=== PATIENT | male | born 1945 | race Caucasian/White ===

== ENCOUNTER 2017-09-17 12:50 | Emergency (ER) | payer OTHER ==
[~2017-09-17] VITALS: Ht 175.3 cm; Wt 80.2 kg
[~2017-09-17 12:50] MED LIST: ASPIRIN E.C.81 M1 PO; Bactrim,Septra DS 80 PO; MELATIN3 MG PO; METFORMIN HCL500 M1 PO; MIRALAX255 GM PO; SAM-E200 MG PO; ST. JOSEPH ASPI81 MG PO; STELAZINE PO; STELAZINE5 MG PO; [UNRECOGNIZED DRUG - OTHER] PO
[2017-09-17 13:24] LABS: HEMATOCRIT 44.8 % (38.0-50.0); HEMOGLOBIN 15.2 G/DL (12.5-16.6); MCHC 33.9 G/DL (30.0-36.0); MCV 88.5 FL (86-99); PLATELET COUNT 391 K/uL (156-360); RBC DIS.WIDTH-CV 13.2 % (11.8-14.6); RBC DIS.WIDTH-SD 42.1 % (39-53); RED BLOOD COUNT 5.06 M/uL (4.00-5.50); WHITE BLOOD COUNT 9.1 K/uL (4.1-10.2)
[2017-09-17 13:36] LABS: ALBUMIN 4.5 g/dL (3.2-4.8); CHLORIDE 101 mEq/L (99-109); POTASSIUM 4.8 mEq/L (3.7-5.4); SODIUM 139 mEq/L (136-147)
[2017-09-17 13:39] LABS: GLUCOSE 95 mg/dL (70-99); TOTAL PROTEIN 6.5 g/dL (6.4-8.3)
[2017-09-17 13:41] LABS: TOTAL BILIRUBIN 0.8 mg/dL (0.0-1.0)
[2017-09-17 13:42] LABS: ALKALINE PHOSPHATASE 86 IU/L (3-129); GFR ESTIMATE (CALCULATED) > 59 mL/min/ (58.99-99999)
[2017-09-17 13:43] LABS: UREA NITROGEN (BUN) 19 mg/dL (9-23)
[2017-09-17 13:44] LABS: AST (GOT) 24 IU/L (2-34)
[2017-09-17 13:45] LABS: ALT (GPT) 25 IU/L (3-49)
[2017-09-17 15:04] VITALS: BP 141/73
== END 2017-09-17 15:20 | disposition home or self-care (01) ==
LOC: EME 12:50
DX: S39.011A Strain of muscle, fascia and tendon of abdomen, initial encounter (principal); X50.0XXA Overexertion from strenuous movement or load, initial encounter; I25.2 Old myocardial infarction; I10 Essential (primary) hypertension; F41.9 Anxiety disorder, unspecified; F32.9 Major depressive disorder, single episode, unspecified; Z79.82 Long term (current) use of aspirin; Z91.041 Radiographic dye allergy status; Z87.891 Personal history of nicotine dependence
CPT/HCPCS: 80053; 81003; 85027; 99281; 99284

== ENCOUNTER 2017-12-04 15:59 | Observation (INO) | payer OTHER ==
[~2017-12-04] VITALS: Ht 175.3 cm; Wt 84.6 kg
[~2017-12-04 15:59] MED LIST changes: -SAM-E200 MG PO; +SAM-E400 MG PO
[2017-12-04 16:48] LABS: HEMATOCRIT 41.7 % (38.0-50.0); HEMOGLOBIN 14.2 G/DL (12.5-16.6); MCH 30.1 PG (29.0-34.0); MCHC 34.1 G/DL (30.0-36.0); MCV 88.3 FL (86-99); PLATELET COUNT 349 K/uL (156-360); RBC DIS.WIDTH-CV 12.7 % (11.8-14.6); RBC DIS.WIDTH-SD 41.5 % (39-53); RED BLOOD COUNT 4.72 M/uL (4.00-5.50); WHITE BLOOD COUNT 12.3 K/uL (4.1-10.2)
[2017-12-04 16:57] LABS: CHLORIDE 107 mEq/L (99-109); POTASSIUM 3.8 mEq/L (3.7-5.4); SODIUM 143 mEq/L (136-147)
[2017-12-04 16:59] LABS: GLUCOSE 90 mg/dL (70-99)
[2017-12-04 17:03] LABS: CREATININE 0.7 mg/dL (0.6-1.3); GFR ESTIMATE (CALCULATED) > 59 mL/min/ (58.99-99999)
[2017-12-04 17:04] LABS: UREA NITROGEN (BUN) 26 mg/dL (9-23)
[2017-12-04 17:09] LABS: TROP-I INTERPRETATION NEGATIVE; TROPONIN-I < 0.01 ng/mL (0.0-0.30)
[2017-12-04 17:24] LABS: D-DIMER ELISA < 150.00 ng/mLDDU (<230)
[2017-12-04 22:30] VITALS: BP 151/75
[2017-12-04 23:40] LABS: TROP-I INTERPRETATION NEGATIVE; TROPONIN-I < 0.01 ng/mL (0.0-0.30)
[2017-12-05 00:38] LABS: APPEARANCE SL.HAZY ((CLEAR)); BILIRUBIN NEGATIVE; BLOOD NEGATIVE; COLOR YELLOW ((YELLOW)); GLUCOSE (STRIP) NEGATIVE; KETONES NEGATIVE; LEUKOCYTES NEGATIVE; NITRITE NEGATIVE; PROTEIN (STRIP) NEGATIVE; SPECIFIC GRAVITY 1.016 (1.000-1.030); UROBILINOGEN 0.2 MG/DL (0.2-1.0)
[2017-12-05 00:41] LABS: BACTERIA NONE SEEN /HPF; EPITHELIAL CELLS NONE SEEN /HPF; MUCUS TRACE /LPF; RED BLOOD CELLS 0-5 /HPF (0-5); UCUL ADDED? NO; WHITE BLOOD CELLS 0-5 /HPF (0-5)
[2017-12-05 04:17] VITALS: BP 129/75
[2017-12-05 06:18] LABS: TROP-I INTERPRETATION NEGATIVE; TROPONIN-I < 0.01 ng/mL (0.0-0.30)
[2017-12-05 06:24] LABS: HDL CHOLESTEROL 43 MG/DL (Desirable>=40); LDL CHOLESTEROL 97 mg/dL (Desirable<100); NON-HDL CHOLESTEROL 107 mg/dL (Desirable<160); TOTAL CHOLESTEROL 150 mg/dL (Desirable<200); TRIGLYCERIDES 51 MG/DL (Normal: <150)
[2017-12-05 07:10] VITALS: BP 137/76
[2017-12-05 07:17] VITALS: BP 96/55
[2017-12-05 09:23] LABS: HEMOGLOBIN A1c (GLYCOHEMOGLOB) 5.2 % (Below 5.7)
== END 2017-12-05 10:15 | disposition home or self-care (01) ==
LOC: EME 15:59 → EDOF 19:46 → ENRESERV 19:48 → 5WEST 22:27
PROVIDERS: Physician Assistant; Physician Assistant Medical
DX: R42 Dizziness and giddiness (principal); M25.512 Pain in left shoulder; F41.1 Generalized anxiety disorder; F32.9 Major depressive disorder, single episode, unspecified; G43.909 Migraine, unspecified, not intractable, without status migrainosus; I10 Essential (primary) hypertension; E11.9 Type 2 diabetes mellitus without complications; Z85.46 Personal history of malignant neoplasm of prostate; Z86.010 Personal history of colon polyps; Z87.891 Personal history of nicotine dependence; Z79.82 Long term (current) use of aspirin; Z80.0 Family history of malignant neoplasm of digestive organs; Z82.3 Family history of stroke; Z80.42 Family history of malignant neoplasm of prostate
CPT/HCPCS: 70450; 71046; 80048; 80061; 81003; 83036; 84484; 85027; 85379; 93005; 99281; 99285; G0378; J7040